=== PATIENT | male | born 1965 | race Caucasian/White ===

== ENCOUNTER 2023-04-05 02:28 | Inpatient (IN) | payer BC, OTHER ==
[~2023-04-05] VITALS: Ht 190.5 cm; Wt 135.2 kg
[2023-04-05] MEDS ORDERED: IV NS 0.9% 1,000 ML BAG IV ONE (03:00)
[2023-04-05 03:26] LABS: BASOPHILS % (AUTO) 0.2 % (0.0-2.0); EOSINOPHILS % (AUTO) 0.4 % (0.0-6.0); HEMATOCRIT 45 % (39-51); HEMOGLOBIN 15.1 g/dL (13.5-17.5); LYMPHOCYTES # (AUTO) 1.8 K/uL (0.8-4.8); LYMPHOCYTES % (AUTO) 19.4 % (20.0-44.0); MEAN CORPUSCULAR HEMOGLOBIN 34 PG (26.0-33.0); MEAN CORPUSCULAR HGB CONC 34 g/dl (31.0-36.0); MEAN CORPUSCULAR VOLUME 100 fL (80-96); MONOCYTES # (AUTO) 0.4 K/uL (0.1-1.30); MONOCYTES % (AUTO) 4.3 % (2.0-12.0); NEUTROPHILS % (AUTO) 75.7 % (43.0-81.0); PLATELET COUNT (AUTO) 100 K/uL (150-450); RED BLOOD CELL COUNT(AUTO) 4.46 MIL/uL (4.5-6.0); RED CELL DISTRIBUTION WIDTH 14.9 % (11.5-15.0); WHITE BLOOD COUNT (AUTO) 9.2 K/uL (4.3-11.0)
[2023-04-05 03:27] LABS: CALCIUM, SERUM 8.3 mg/dL (8.5-10.1); CARBON DIOXIDE 18 mmol/L (21-32); CHLORIDE 107 mmol/L (98-107); GLUCOSE 161 mg/dL (74-106); POTASSIUM 3.4 mmol/L (3.5-5.1); SODIUM SERUM 137 mmol/L (136-145); UREA NITROGEN, BLOOD 11 mg/dL (7-18)
[2023-04-05] MEDS ORDERED: ONDANSETRON HCL/PF - ER 4 MG/2 ML VIAL IV ONE (05:00)
[2023-04-05] MEDS ORDERED: IV NS 0.9% 1,000 ML IV ONE (05:00)
[2023-04-05] MEDS ORDERED: KETOROLAC TROMETHAMINE INJ 30 MG/ML VIAL IV ONE (05:00)
[2023-04-05] MEDS ORDERED: KETOROLAC TROMETHAMINE INJ 30 MG/ML VIAL ONE (05:05)
[2023-04-05] MEDS ORDERED: ONDANSETRON HCL/PF 4 MG/2 ML VIAL ONE (05:05)
[2023-04-05] MEDS ORDERED: LIDOCAINE 5% (PATCH) 1 EA PATCH TP ONE (05:05)
[2023-04-05] MEDS: LIDOCAINE 5% (PATCH) 1 EA PATCH TP SCH (05:13)
[2023-04-05] MEDS ORDERED: PANT40TA2 PO (08:10)
[2023-04-05] MEDS ORDERED: VALS160T29 PO (08:10)
[2023-04-05] MEDS ORDERED: TAMS-12 PO (08:10)
[2023-04-05] MEDS ORDERED: DULO20CA PO (08:10)
[2023-04-05] MEDS ORDERED: ONDANSETRON HCL/PF 4 MG/2 ML VIAL IVP PRN (08:30)
[2023-04-05] MEDS ORDERED: hydrALAZINE HCL IV 20 MG VIAL IV PRN (08:30)
[2023-04-05] MEDS ORDERED: ACETAMINOPHEN 325 MG TABLET PO PRN (08:30)
[2023-04-05] MEDS ORDERED: PANTOPRAZOLE 40 MG TABLET.DR PO SCH (09:00)
[2023-04-05 09:30] VITALS: BP 142/90; TEMP 98.1; O2SAT 96
[2023-04-05 12:09] LABS: ALANINE AMINOTRANSFERASE 39 U/L (12-78); ALBUMIN 2.5 g/dL (3.4-5.0); ALCOHOL, BLOOD < 3 mg/dL (0-10); ALKALINE PHOSPHATASE 145 U/L (46-116); ASPARTATE AMINOTRANSFERASE 42 U/L (15-37); BILIRUBIN,TOTAL 1.9 mg/dL (0.2-1.0); CALCIUM, SERUM 7.7 mg/dL (8.5-10.1); CARBON DIOXIDE 21 mmol/L (21-32); CHLORIDE 109 mmol/L (98-107); CREATININE 0.6 mg/dL (0.6-1.3); GLUCOSE 143 mg/dL (74-106); POTASSIUM 3.6 mmol/L (3.5-5.1); SODIUM SERUM 139 mmol/L (136-145); TOTAL PROTEIN, SERUM 5.9 g/dL (6.4-8.2); UREA NITROGEN, BLOOD 13 mg/dL (7-18)
[2023-04-05 12:12] LABS: BILIRUBIN,DIRECT 0.6 mg/dL (0.0-0.2); BILIRUBIN,TOTAL 1.9 mg/dL (0.2-1.0)
[2023-04-05 12:24] LABS: LACTIC ACID REFLEX 2.3 mmol/L (0.4-1.9)
[2023-04-05] MEDS: DULOXETINE HCL 20 MG CAPSULE.DR PO SCH (12:52)
[2023-04-05] MEDS: TAMSULOSIN 0.4 MG CAP.SR.24H PO SCH ×2 (12:53→18:25)
[2023-04-05] MEDS: ENOXAPARIN SODIUM 40 MG/0.4 ML DISP.SYRIN SQ SCH (12:55)
[2023-04-05] MEDS: IV NS 0.9% 1,000 ML IV PRN ×2 (12:56→21:21)
[2023-04-05] MEDS: MORPHINE SULFATE INJ 2 MG/ML DISP.SYRIN IV PRN ×2 (13:14→18:25)
[2023-04-05] MEDS: PANTOPRAZOLE 40 MG TABLET.DR PO SCH (15:20)
[2023-04-05 16:00] VITALS: BP 99/61; TEMP 98.3; O2SAT 96
[2023-04-06] VITALS: BP 122/99; TEMP 98.8; O2SAT 96
[2023-04-06] MEDS: IV NS 0.9% 1,000 ML IV PRN ×2 (07:18→15:41)
[2023-04-06 07:27] LABS: BASOPHILS % (AUTO) 0.1 % (0.0-2.0); EOSINOPHILS # (AUTO) 0.1 K/uL (0.0-0.7); EOSINOPHILS % (AUTO) 1.2 % (0.0-6.0); HEMATOCRIT 40 % (39-51); HEMOGLOBIN 13.6 g/dL (13.5-17.5); LYMPHOCYTES # (AUTO) 1.8 K/uL (0.8-4.8); LYMPHOCYTES % (AUTO) 21.1 % (20.0-44.0); MEAN CORPUSCULAR HEMOGLOBIN 34 PG (26.0-33.0); MEAN CORPUSCULAR HGB CONC 34 g/dl (31.0-36.0); MEAN CORPUSCULAR VOLUME 100 fL (80-96); MONOCYTES # (AUTO) 0.9 K/uL (0.1-1.30); NEUTROPHILS # (AUTO) 5.9 K/uL (1.8-8.9); NEUTROPHILS % (AUTO) 67.6 % (43.0-81.0); PLATELET COUNT (AUTO) 77 K/uL (150-450); WHITE BLOOD COUNT (AUTO) 8.8 K/uL (4.3-11.0)
[2023-04-06 08:00] VITALS: BP 141/91; TEMP 98.1; O2SAT 94
[2023-04-06 08:36] LABS: ALBUMIN 2.4 g/dL (3.4-5.0); BILIRUBIN,TOTAL 1.9 mg/dL (0.2-1.0); CALCIUM, SERUM 7.7 mg/dL (8.5-10.1); CREATININE 0.6 mg/dL (0.6-1.3); MAGNESIUM 1.8 mg/dL (1.8-2.4); PHOSPHORUS 2.3 mg/dL (2.5-4.9); POTASSIUM 3.6 mmol/L (3.5-5.1); TOTAL PROTEIN, SERUM 5.8 g/dL (6.4-8.2)
[2023-04-06] MEDS: TAMSULOSIN 0.4 MG CAP.SR.24H PO SCH ×2 (09:30→17:13)
[2023-04-06] MEDS: DULOXETINE HCL 20 MG CAPSULE.DR PO SCH (09:30)
[2023-04-06] MEDS: VALSARTAN 80 MG TABLET PO SCH (09:31)
[2023-04-06] MEDS: ENOXAPARIN SODIUM 40 MG/0.4 ML DISP.SYRIN SQ SCH (09:34)
[2023-04-06] MEDS: PANTOPRAZOLE 40 MG TABLET.DR PO SCH (09:35)
[2023-04-06] MEDS: MORPHINE SULFATE INJ 2 MG/ML DISP.SYRIN IV PRN ×3 (09:42→22:25)
[2023-04-06 10:26] LABS: EOSINOPHILS % (MANUAL) 3 % (0-4); LYMPHOCYTES % (MANUAL) 19 % (16-48); MONOCYTES % (MANUAL) 8 % (0-11.0); NEUTROPHILS % (MANUAL) 70 (42-76); PLATELET ESTIMATE DECREASED
[2023-04-06 10:27] LABS: ANISOCYTOSIS 1+; TEAR DROP CELLS 1+
[2023-04-06] MEDS ORDERED: Z GUARD REMEDY 4 OZ OINT TP PRN (10:30)
[2023-04-06] MEDS: Z GUARD REMEDY 4 OZ OINT TP SCH (10:31)
[2023-04-06] MEDS ORDERED: K PHOS NEUTRAL 250 MG TABLET PO ONE (15:30)
[2023-04-06 16:00] VITALS: BP 131/77; TEMP 98.1; O2SAT 94
[2023-04-06] MEDS: CLOTRIMAZOLE 1% 15 GM TUBE TP SCH (17:13)
[2023-04-06] MEDS: LIDOCAINE 5% (PATCH) 1 EA PATCH TP SCH (17:26)
[2023-04-06 20:00] VITALS: BP 132/87; TEMP 98.4; O2SAT 92
[2023-04-07 04:00] VITALS: BP 135/89; TEMP 98.5; O2SAT 95
[2023-04-07] MEDS: MORPHINE SULFATE INJ 2 MG/ML DISP.SYRIN IV PRN ×2 (04:06→08:42)
[2023-04-07] MEDS: IV NS 0.9% 1,000 ML IV PRN (05:56)
[2023-04-07] MEDS: PANTOPRAZOLE 40 MG TABLET.DR PO SCH (08:00)
[2023-04-07] MEDS: DULOXETINE HCL 20 MG CAPSULE.DR PO SCH (08:32)
[2023-04-07] MEDS: TAMSULOSIN 0.4 MG CAP.SR.24H PO SCH ×2 (08:32→18:07)
[2023-04-07] MEDS: VALSARTAN 80 MG TABLET PO SCH (08:33)
[2023-04-07 09:00] VITALS: BP 159/96; TEMP 98.4; O2SAT 98
[2023-04-07] MEDS: CLOTRIMAZOLE 1% 15 GM TUBE TP SCH ×2 (09:00→18:08)
[2023-04-07] MEDS: MORPHINE SULFATE IR 15 MG TABLET PO SCH ×2 (10:53→18:07)
[2023-04-07] MEDS: ENOXAPARIN SODIUM 40 MG/0.4 ML DISP.SYRIN SQ SCH (10:54)
[2023-04-07 16:00] VITALS: BP 147/91; TEMP 98.4; O2SAT 98
[2023-04-07] MEDS: Z GUARD REMEDY 4 OZ OINT TP SCH (18:08)
[2023-04-07 20:00] VITALS: BP 157/110; TEMP 99.2; O2SAT 91
[2023-04-08] MEDS: MORPHINE SULFATE IR 15 MG TABLET PO SCH ×3 (00:25→16:15)
[2023-04-08 04:00] VITALS: BP 151/103; TEMP 98.9; O2SAT 96
[2023-04-08] MEDS: PANTOPRAZOLE 40 MG TABLET.DR PO SCH (07:40)
[2023-04-08 08:00] VITALS: BP 114/66; TEMP 98.6; O2SAT 100
[2023-04-08] MEDS: DULOXETINE HCL 20 MG CAPSULE.DR PO SCH (08:28)
[2023-04-08] MEDS: TAMSULOSIN 0.4 MG CAP.SR.24H PO SCH ×2 (08:28→16:15)
[2023-04-08] MEDS: CLOTRIMAZOLE 1% 15 GM TUBE TP SCH ×2 (08:29→16:15)
[2023-04-08] MEDS: VALSARTAN 80 MG TABLET PO SCH (08:29)
[2023-04-08] MEDS: Z GUARD REMEDY 4 OZ OINT TP SCH (08:30)
[2023-04-08] MEDS: ENOXAPARIN SODIUM 40 MG/0.4 ML DISP.SYRIN SQ SCH (08:30)
[2023-04-08 16:00] VITALS: BP 141/87; TEMP 99; O2SAT 95
[2023-04-08] MEDS: HYDROMORPHONE 1 MG/1 ML DISP.SYRIN IV PRN (18:42)
[2023-04-08 20:00] VITALS: BP 150/80; TEMP 98.4; O2SAT 97
[2023-04-09] MEDS: MORPHINE SULFATE IR 15 MG TABLET PO SCH ×3 (00:22→17:29)
[2023-04-09 04:00] VITALS: BP 128/69; TEMP 98.4; O2SAT 97
[2023-04-09 08:00] VITALS: BP 141/90; TEMP 99.3; O2SAT 97
[2023-04-09] MEDS: PANTOPRAZOLE 40 MG TABLET.DR PO SCH (08:12)
[2023-04-09] MEDS: DULOXETINE HCL 20 MG CAPSULE.DR PO SCH (09:36)
[2023-04-09] MEDS: TAMSULOSIN 0.4 MG CAP.SR.24H PO SCH ×2 (09:36→17:29)
[2023-04-09] MEDS: CLOTRIMAZOLE 1% 15 GM TUBE TP SCH ×2 (09:37→17:30)
[2023-04-09] MEDS: VALSARTAN 80 MG TABLET PO SCH (09:37)
[2023-04-09] MEDS: Z GUARD REMEDY 4 OZ OINT TP SCH (09:37)
[2023-04-09] MEDS: ENOXAPARIN SODIUM 40 MG/0.4 ML DISP.SYRIN SQ SCH (09:44)
[2023-04-09] MEDS: HYDROMORPHONE 1 MG/1 ML DISP.SYRIN IV PRN (13:41)
[2023-04-09 16:00] VITALS: BP 116/77; TEMP 98.3; O2SAT 94
[2023-04-09 20:00] VITALS: BP 137/87; TEMP 98.5; O2SAT 94
[2023-04-10 04:00] VITALS: BP 154/100; TEMP 98.9; O2SAT 92
[2023-04-10 08:00] VITALS: BP 152/85; TEMP 98.9; O2SAT 92
[2023-04-10] MEDS: DULOXETINE HCL 20 MG CAPSULE.DR PO SCH (08:26)
[2023-04-10] MEDS: TAMSULOSIN 0.4 MG CAP.SR.24H PO SCH ×2 (08:26→16:56)
[2023-04-10] MEDS: PANTOPRAZOLE 40 MG TABLET.DR PO SCH (08:26)
[2023-04-10] MEDS: MORPHINE SULFATE IR 15 MG TABLET PO SCH ×3 (08:26→16:55)
[2023-04-10] MEDS: VALSARTAN 80 MG TABLET PO SCH (08:27)
[2023-04-10] MEDS: ENOXAPARIN SODIUM 40 MG/0.4 ML DISP.SYRIN SQ SCH (08:34)
[2023-04-10] MEDS: CLOTRIMAZOLE 1% 15 GM TUBE TP SCH ×2 (09:18→16:55)
[2023-04-10] MEDS: Z GUARD REMEDY 4 OZ OINT TP SCH (09:19)
[2023-04-10 09:37] LABS: BASOPHILS % (AUTO) 0.2 % (0.0-2.0); EOSINOPHILS # (AUTO) 0.2 K/uL (0.0-0.7); EOSINOPHILS % (AUTO) 1.9 % (0.0-6.0); HEMATOCRIT 45 % (39-51); HEMOGLOBIN 15.1 g/dL (13.5-17.5); LYMPHOCYTES # (AUTO) 1.6 K/uL (0.8-4.8); MEAN CORPUSCULAR HEMOGLOBIN 34 PG (26.0-33.0); MEAN CORPUSCULAR HGB CONC 34 g/dl (31.0-36.0); MEAN CORPUSCULAR VOLUME 100 fL (80-96); MONOCYTES # (AUTO) 1.5 K/uL (0.1-1.30); NEUTROPHILS # (AUTO) 4.8 K/uL (1.8-8.9); NEUTROPHILS % (AUTO) 58.9 % (43.0-81.0); PLATELET COUNT (AUTO) 98 K/uL (150-450); RED BLOOD CELL COUNT(AUTO) 4.48 MIL/uL (4.5-6.0); RED CELL DISTRIBUTION WIDTH 14.7 % (11.5-15.0); WHITE BLOOD COUNT (AUTO) 8.1 K/uL (4.3-11.0)
[2023-04-10 09:50] LABS: CALCIUM, SERUM 8.2 mg/dL (8.5-10.1); CREATININE 0.6 mg/dL (0.6-1.3); POTASSIUM 3.7 mmol/L (3.5-5.1)
[2023-04-10 09:58] LABS: ALBUMIN 2.4 g/dL (3.4-5.0); BILIRUBIN,TOTAL 1.8 mg/dL (0.2-1.0); TOTAL PROTEIN, SERUM 6.1 g/dL (6.4-8.2)
[2023-04-10 11:23] LABS: ANISOCYTOSIS 1+; BAND % (MANUAL) 1 % (0.0-5.0); EOSINOPHILS % (MANUAL) 1 % (0-4); LYMPHOCYTES % (MANUAL) 22 % (16-48); MONOCYTES % (MANUAL) 17 % (0-11.0); NEUTROPHILS % (MANUAL) 59 (42-76); PLATELET ESTIMATE DECREASED
[2023-04-10 16:34] VITALS: BP 121/80; TEMP 98.9; O2SAT 92
[2023-04-10 20:00] VITALS: BP 145/91; TEMP 97.7; O2SAT 93
[2023-04-11] MEDS: MORPHINE SULFATE IR 15 MG TABLET PO SCH ×2 (00:02→10:11)
[2023-04-11 04:00] VITALS: BP 143/76; TEMP 98.4; O2SAT 93
[2023-04-11 08:00] VITALS: BP 144/86; TEMP 97.3; O2SAT 91
[2023-04-11] MEDS ORDERED: LEVOFLOXACIN (250MG) 250 MG TABLET PO SCH (08:00)
[2023-04-11] MEDS: CLOTRIMAZOLE 1% 15 GM TUBE TP SCH (09:00)
[2023-04-11] MEDS: Z GUARD REMEDY 4 OZ OINT TP SCH (09:00)
[2023-04-11] MEDS: PANTOPRAZOLE 40 MG TABLET.DR PO SCH (10:06)
[2023-04-11] MEDS: TAMSULOSIN 0.4 MG CAP.SR.24H PO SCH (10:06)
[2023-04-11 10:07] VITALS: BP 144/86
[2023-04-11] MEDS: VALSARTAN 80 MG TABLET PO SCH (10:07)
[2023-04-11] MEDS: DULOXETINE HCL 20 MG CAPSULE.DR PO SCH (10:11)
[2023-04-11] MEDS: ENOXAPARIN SODIUM 40 MG/0.4 ML DISP.SYRIN SQ SCH (10:12)
[2023-04-11] MEDS ORDERED: MORP15TA PO (11:13)
[2023-04-11] MEDS ORDERED: LEVO250T59 PO (11:13)
== END 2023-04-11 15:39 | disposition home health service (06) | DRG 866 ==
LOC: ER 02:31 → MEDSG1 09:25
PROVIDERS: ADMIT Internal Medicine; ATTEND Internal Medicine
DX: B34.9 Viral infection, unspecified (principal); S22.42XA Multiple fractures of ribs, left side, initial encounter for closed fracture; E87.20 Acidosis, unspecified; K74.60 Unspecified cirrhosis of liver; E86.0 Dehydration; W18.30XA Fall on same level, unspecified, initial encounter; Y92.092 Bedroom in other non-institutional residence as the place of occurrence of the external cause; Z20.822 Contact with and (suspected) exposure to COVID-19; I10 Essential (primary) hypertension; Z88.5 Allergy status to narcotic agent; I95.9 Hypotension, unspecified; E87.6 Hypokalemia; K31.89 Other diseases of stomach and duodenum; S90.122A Contusion of left lesser toe(s) without damage to nail, initial encounter; I87.2 Venous insufficiency (chronic) (peripheral); Z79.899 Other long term (current) drug therapy
CPT/HCPCS: 36415; 71045-TC; 71250-TC; 73630-TC; 80048-TC; 80053-TC; 82247-TC; 82248-TC; 83605-TC; 83735-TC; 84100-TC; 84484-TC; 85025-TC; 97110-TC; 97112-TC; 97116-TC; 97530-TC; 97535-TC; A4223; G0378; G0480; J1170; J1650; J1885; J2270; J2405; J3490; J7030